=== PATIENT | male | born 1960 | race Caucasian/White ===

== ENCOUNTER 2018-01-26 18:26 | Emergency (ER) | payer OTHER ==
[2018-01-26] MEDS ORDERED: Ketorolac Tromethamine 30 MG/ML VIAL ONE (18:51)
[2018-01-26 19:04] LABS: Bilirubin Negative (Negative); Blood, Urine Large (Negative); Clarity Slightly Cloudy (Clear); Glucose, Urine (Dipstick) Negative (Negative); Leukocyte Negative (Negative); Nitrite Negative (Negative); Protein, Urine (Dipstick) Negative (Neg-Trace); Urobilinogen 0.2 mg/dL (0.2-1.0)
[2018-01-26 19:05] LABS: Specific Gravity, Urine 1.024 (1.002-1.036)
[2018-01-26 19:11] LABS: #Basophils 0.1 thou/uL (0.0-0.2); #Eosinphils 0.2 thou/uL (0.0-0.7); #Lymphocytes 2.4 thou/uL (1.20-3.40); #Monocytes 0.9 thou/uL (0.11-0.59); %Basophils 0.9 % (0.0-1.0); %Eosinophils 1.7 % (0.0-10.0); %Lymphocytes 24.7 % (21.0-51.0); %Monocytes 9.4 % (0.0-10.0); %Neutrophils 63.3 % (42.0-75.0); Hemoglobin 16.9 g/dL (14.0-18.0); Mean Corpuscular HGB CONC 34.9 g/dL (32.0-36.0); Mean Corpuscular Hemoglobin 29.4 pg (27.0-31.0); Mean Corpuscular Volume 84.1 fl (80.0-94.0); Mean Platelet Volume 6.5 fL (7.4-10.4); Platelet Count 353 thou/uL (130-400); RBC Distribution Width 13.1 % (11.5-14.5); Red Blood Cell (RBC) Count 5.76 mill/uL (4.70-6.10); White Blood Cell (WBC) Count 9.5 thou/uL (4.8-10.8)
[2018-01-26 19:17] LABS: RBC/HPF 21-50 HPF (0-3)
[2018-01-26 19:18] LABS: Bacteria/HPF Rare-Few HPF (None Seen); Crystals/HPF 2+ URIC ACID HPF (Negative); Oval Fat Bodies/HPF None Seen HPF (None Seen); Renal Epithelial None Seen HPF (0-3); Sperm/HPF None Seen HPF (None Seen); Squamous Epithelial 0-3 HPF (0-3); Transitional Epithelial NONE SEEN HPF (0-3); Trichomonas/HPF None Seen HPF (None Seen); WBC/HPF 0-3 HPF (0-3); Yeast-All Forms None Seen HPF (None Seen)
[2018-01-26 19:19] LABS: Hyaline Casts/LPF NONE SEEN LPF (0-3 Hyaline); Other Casts/LPF None Seen LPF (0-3 Hyaline)
[2018-01-26 19:26] LABS: ALT (SGPT) 47 U/L (8-55); AST (SGOT) 20 U/L (5-34); Albumin 4.7 g/dL (3.5-5.0); Alkaline Phosphatase 62 U/L (40-150); Anion Gap 18 mmol/L (10-20); Bilirubin, Total 0.7 mg/dL (0.2-1.2); Calc. Creatinine Clearance 0 mL/min (70-130); Carbon Dioxide 18 mmol/L (22-29); Chloride 109 mmol/L (98-107); Estimated GFR-MDRD 59; Globulin 3.3 g/dL (2.4-3.5); Glucose 104 mg/dL (70-105); Sodium 141 mmol/L (136-145)
[2018-01-26 19:49] LABS: BUN (Urea Nitrogen) 23 mg/dL (8.4-25.7)
--- NOTE | 2018-01-26 22:32 | CT ---
CT OF THE ABDOMEN AND PELVIS WITHOUT CONTRAST: Date: 01-26-[address] of the abdomen and pelvis was performed using a renal stone protocol with no oral or IV con trast. Axial slices were acquired and then coronal and sagittal reconstructions were done. FINDINGS: There is a 3 mm calculus in the distal right ureter at the UVJ. It is causing very mild right hydrone phrosis. No other definite stones were seen in either kidney. There is a 2 cm rounded low density in the left kidney, middle portion, that is most likely a cyst. However, ultrasound would be needed to p rove this. The lung bases are clear. The liver, spleen, pancreas, adrenal glands, and abdominal aorta were unrem arkable. No stones were seen in the gallbladder. The bowel appears normal. The appendix is normal in appearance. There is no bowel wall thickening or inflammatory change around it. No free air or free fluid was seen. CT of the pelvis showed no pelvic masses, fluid collections, or other acute changes. There is no free fluid. Incidentally noted was a fat filled left inguinal hernia. IMPRESSION: 1. 3 mm distal right ureteral calculus at the UVJ. 2. 2 cm rounded density in the left kidney, most likely a cyst, but an elective ultrasound should be done to be certain. POS: HOME
== END 2018-01-26 19:33 | disposition home or self-care (01) ==
LOC: BURERS 18:26
DX: N13.2 Hydronephrosis with renal and ureteral calculous obstruction (principal); I25.10 Atherosclerotic heart disease of native coronary artery without angina pectoris; E78.1 Pure hyperglyceridemia; I10 Essential (primary) hypertension; Z79.899 Other long term (current) drug therapy
CPT/HCPCS: 74176; 80053; 81003; 81015; 85025; 96374; J1885